=== PATIENT | male | born 2000 | race African-American/Black ===

== ENCOUNTER 2022-11-07 18:43 | Emergency (ER) | payer OTHER ==
[2022-11-07 18:56] VITALS: BP 130/73; O2SAT 99
[2022-11-07 19:14] LABS: RAPID STREP SCREEN Negative (Negative)
--- NOTE | 2022-11-07 19:35 | ED Physician Documentation ---
History of Present Illness - Stated complaint Stated Complaint: SORE THROAT,COUGH - Chief complaint Chief Complaint: Heent - Additonal information Additional information: 22-year-old male active [employer] [place] presents to the emergency department for evaluation of sore throat. Patient reports that he was exposed to somebody yesterday in the [place] that tested positive for COVID today has a sore throat. No cough no fevers. He is vaccinated though not boosted for COVID. The exception of a sore throat he has no other symptomatology. Unremarkable past medical history. Review of Systems Constitutional: reports: Reviewed and negative Throat: reports: Sore throat Cardiac: reports: Reviewed and negative Respiratory: reports: Reviewed and negative GI: reports: Reviewed and negative PD PAST MEDICAL HISTORY - Allergies Allergies/Adverse Reactions: Allergies Allergy/AdvReac Type Severity Reaction Status Date / Time No Known Drug Allergies Allergy Verified 11/07/22 18:48 PD ED PE NORMAL - General General: Alert and oriented X 3, No acute distress, Well developed/nourished - HEENT HEENT: Moist mucous membranes, Pharynx benign - Neck Neck: Supple, no meningeal sign, No adenopathy - Cardiac Cardiac: RRR, No murmur - Respiratory Respiratory: No respiratory distress, Clear bilaterally - Abdomen Abdomen: Normal bowel sounds, Soft Results - Vitals Vitals: Vital Signs - 24 hr 11/07/22 18:48 Temperature 36.8 C Heart Rate 75 Respiratory 16 Rate Blood Pressure 130/73 O2 Saturation 99 Oxygen O2 Source Room air - Labs Labs: Laboratory Tests 11/07/22 18:55 Group A Strep Rapid Negative PD Medical Decision Making - ED course Complexity details: reviewed results, re-evaluated patient, d/w patient ED course: 22-year-old male here with sore throat. He is concerned that he may have COVID after exposure to somebody that tested positive. I cardiopulmonary auscultation was unremarkable. No hypoxia. Rapid strep test is negative. Respiratory PCR panel is pending. Patient is advised to maintain quarantine or isolation until test results are known and if positive he should quarantine for 1 week. Given unremarkable past medical history with no risk factors would not recommend Paxlovid if COVID-positive. Usual emergent return precautions were discussed Departure - Departure Disposition: 01 Home, Self Care Clinical Impression: Sore throat, Exposure to COVID-19 virus Condition: Stable Record reviewed to determine appropriate education?: Yes Comments: You are seen today in the emergency department for sore throat and concern that he could have contracted COVID after being exposed to 70 as COVID-positive yesterday. Your strep testing today is negative. Your COVID test results will not be available for several hours. You can follow these up online. If you are COVID-positive you will need to maintain quarantine and isolation for 1 week. Because you are otherwise healthy I would not recommend oral antiviral treatment if you are COVID-positive. In general just treat this like a head cold. Return to the ER if you have any new or worsening symptoms.
[2022-11-07 19:53] LABS: CORONAVIRUS 229E-RESP PCR NOT DETECTED; CORONAVIRUS HKU1-RESP PCR NOT DETECTED; CORONAVIRUS NL63-RESP PCR NOT DETECTED; CORONAVIRUS OC43-RESP PCR NOT DETECTED; HUMAN METAPNEUMOVIRUS NOT DETECTED; INFLUENZA A- RESP PCR PANEL NOT DETECTED; INFLUENZA B - RESP PCR PANEL NOT DETECTED; PARAINFLUENZA VIRUS 1 NOT DETECTED; PARAINFLUENZA VIRUS 2 NOT DETECTED; PARAINFLUENZA VIRUS 3 NOT DETECTED; RHINOVIRUS/ENTEROVIRUS NOT DETECTED; SARS-CoV-2 -RESP PCR PANEL DETECTED
[2022-11-07 19:54] LABS: B. PARAPERTUSSIS- RESP PCR PAN NOT DETECTED; B. PERTUSSIS- RESP PCR PANEL NOT DETECTED; C. PNEUMONIAE- RESP PCR PANEL NOT DETECTED; M. PNEUMONIAE- RESP PCR PANEL NOT DETECTED; PARAINFLUENZA VIRUS 4 NOT DETECTED; RSV- RESP PCR PANEL NOT DETECTED
== END 2022-11-07 19:46 | disposition home or self-care (01) ==
LOC: ED 18:43
DX: R07.0 Pain in throat (principal); Z20.822 Contact with and (suspected) exposure to COVID-19
CPT/HCPCS: 87070; 87430; 87633; 99283